=== PATIENT | female | born 1950 | race African-American/Black ===

== ENCOUNTER 2024-01-20 18:03 | Emergency (ER) | payer MEDICARE, OTHER ==
[~2024-01-20] VITALS: Ht 167.6 cm; Wt 75.0 kg
[2024-01-20 18:04] VITALS: O2SAT 98
[2024-01-20] MEDS ORDERED: DEXTROSE 50% WATER 50ML SYRINGE IV ONE (18:11)
[2024-01-20] MEDS: DEXTROSE 50% WATER 50ML SYRINGE IV ONE ×2 (18:16→18:30)
[2024-01-20 18:37] LABS: BASOPHILS % 0.8 % (0.0-2.0); EOSINOPHILS % 0.5 % (0.0-5.0); LYMPHOCYTES % 25.8 % (20.0-50.0); MEAN CORPUSCULAR HEMOGLOBIN 27.5 pg (28.0-32.0); MEAN CORPUSCULAR HGB CONC 32.5 g/dL (31.0-37.0); MEAN CORPUSCULAR VOLUME 84.5 fL (81.0-99.0); MONOCYTES % 3.8 % (2.0-8.0); NEUTROPHILS % 69.1 % (40.0-76.0); PLATELET 266 x1000/uL (130-400); RED BLOOD CELL COUNT 4.02 mill/uL (4.2-5.4); RED CELL DISTRIBUTION WIDTH 15.2 % (11.6-14.6)
[2024-01-20 18:41] LABS: CARBON DIOXIDE 24 mEq/L (21-32); CHLORIDE 105 mEq/L (98-107); POTASSIUM 4.3 mEq/L (3.5-5.1); SODIUM 137 mEq/L (136-145)
[2024-01-20 18:42] LABS: CALCIUM 9.4 mg/dL (8.7-10.4)
[2024-01-20 18:47] LABS: GLUCOSE 250 mg/dL (70-105); UREA NITROGEN BLOOD 19 mg/dL (9-23)
[2024-01-20 18:49] LABS: ETHANOL BLOOD < 10 mg/dL (<10)
[2024-01-20 22:17] VITALS: TEMP 36.89184
[2024-01-21 00:20] VITALS: BP 100/79; PULSE 74; RESP 12; O2SAT 99
== END 2024-01-21 00:30 | disposition home or self-care (01) ==
LOC: ER 18:03
DX: E11.649 Type 2 diabetes mellitus with hypoglycemia without coma (principal); I10 Essential (primary) hypertension
CPT/HCPCS: 36415; 80048; 80320; 82962; 85025; 93005; 96374; 99291; G0480